=== PATIENT | female | born 1945 | race Caucasian/White ===

== ENCOUNTER → 2020-04-10 | Day surgery (SDC) | payer MEDICARE, OTHER ==
[2020-04-07 12:32] LABS: BASOPHILS # (AUTO) 0.1 (0.0-0.1); BASOPHILS % 0.6 % (0.0-1.0); EOSINOPHILS # (AUTO) 0.3 (0.0-0.4); EOSINOPHILS % 2.6 % (0.0-6.0); HEMATOCRIT 35.9 % (34.2-44.1); HEMOGLOBIN 11.3 g/dL (12.0-16.0); LYMPHOCYTES # (AUTO) 1.6 (1.0-3.2); LYMPHOCYTES % 13.3 % (18.0-39.1); MEAN CORPUSCULAR HEMOGLOBIN 29.7 pg (28-32); MEAN CORPUSCULAR HGB CONC 31.5 g/dL (31-35); MEAN CORPUSCULAR VOLUME 94.2 fL (81-99); MONOCYTES # (AUTO) 1.2 (0.2-0.8); MONOCYTES % 9.8 % (4.4-11.3); NEUTROPHILS # (AUTO) 8.6 (2.1-6.9); NEUTROPHILS % 72.9 % (38.7-80.0); PLATELET COUNT 209 x10e3/uL (140-360); RED BLOOD COUNT 3.81 x10e6/uL (3.6-5.1); RED CELL DISTRIBUTION WIDTH 13.4 % (11.7-14.4)
--- NOTE | 2020-04-07 13:22 | Diagnostic Imaging Report ---
Exam: CHEST 2 VIEWS Date: 04/07/2020 1:18 PM INDICATION: ^[id number] ^[id number] ^PRE OP Comparison: None FINDINGS: Lines/Tubes:None Lungs:The lungs are well inflated. No focal consolidation or pulmonary edema. Pleura:No pleural effusion. No pneumothorax. Heart/Mediastinum:The cardiomediastinal silhouette is normal in size and contour. Bones/Soft Tissues: No acute osseous abnormality. Mild multilevel degenerative changes of the spine are noted. Upper abdomen: Surgical clips in the right upper quadrant are likely related to cholecystectomy change. IMPRESSION: Negative for acute intrathoracic process. Signed by: Ronald Bains MD on 04/07/2020 1:18 PM
[~2020-04-10] MED LIST: BUPIVACAINE HCL 0.5% INJ 30 ML VIAL INJ ONE; BUPROPION XL150 MG PO; CEFAZOLIN SOD 1 GM/NS 50ML 50 ML IV ONE; CITALOPRAM HBR20 MG PO; CRESTOR10 MG PO; DEXAMETHASONE SOD PHOS INJ 4 MG/ML VIAL ONE; GABAPENTIN300 MG PO; KETOROLAC TROMETHAMINE 30 MG/ML VIAL ONE; LIDOCAINE HCL 2% LOCAL INJ 5 ML SDV VIAL INJ ONE; LISINOPRIL-HCT1 EAC2 PO; LOSARTAN POTAS100 MG PO; MELOXICAM7.5 MG PO; MUPIROCIN 2% OINT 22 GM TUBE ONE; ONDANSETRON HCL INJ 2MG/ML 2ML 2 MG/ML VIAL ONE; PROPOFOL IV EMULSION 10 MG/ML 20 ML VIAL ONE; PROTONIX20 MG PO; SEVOFLURANE INHAL SOLN 250 ML PEN BTL ONE
[2020-04-10 09:30] VITALS: BP 138/69
--- NOTE | 2020-04-10 17:52 | Operative Report ---
DATE OF PROCEDURE: 04/10/2020 SURGEON: Wiley Grace MD PREOPERATIVE DIAGNOSIS: Stenosing tenosynovitis of left thumb, left index, and left middle fingers. POSTOPERATIVE DIAGNOSIS: Stenosing tenosynovitis of left thumb, left index, and left middle fingers. OPERATION PERFORMED: Tenovaginotomy of left thumb, left index, and left middle fingers. ANESTHESIA: General. HISTORY: The patient is a 75-year-old left hand-dominant female, who presents with stenosing tenosynovitis of the left thumb, left index, and left middle fingers that is recalcitrant to conservative treatment. The risks, benefits, and alternatives of treatment were discussed with the patient and they are prepared to undergo the procedure as outlined. DESCRIPTION OF PROCEDURE: The patient was brought to the operating theater. After the induction of adequate general/regional anesthesia, the patient was prepped and draped in a supine position. A time out was performed by the entire operating room team. An oblique incision was marked out over the A1 hemanth of the left thumb, left index, and left middle fingers. The upper extremity was exsanguinated, and a tourniquet was inflated to a pressure of 250 mmHg. The incision was made through the skin and subcutaneous tissues. All venous tributaries were controlled with bipolar cautery. The incision was deepened through the palmar tissues. The neurovascular bundles on the radial and ulnar sides of the flexor tendon sheath were identified and retracted away from the flexor tendon sheath and preserved. The A1 hemanth of the affected finger was identified and incised longitudinally, taking care to protect and preserve the flexor tendons within the sheath. After the complete length of the hemanth had been transected, the tendons were placed in a range of motion. There was noted to be good motion without any locking. The wound was then copiously irrigated with bacteriostatic saline and closed with 5-0 nylon in an interrupted horizontal mattress fashion. A Marcaine field block was performed at the operative site. The tourniquet was deflated. All the fingers pinked up nicely. A sterile bulky conforming bandage was applied to the hand, and the patient was returned to the recovery room in satisfactory condition and was discharged with a postoperative instruction sheet as well as a followup appointment. MD VELASQUEZ Pichardo/MODL /[id number]
== END | disposition home or self-care (01) ==
LOC: OR 05:30
PROVIDERS: ATTEND Plastic Surgery
DX: M65.312 Trigger thumb, left thumb (principal); M65.322 Trigger finger, left index finger; M65.332 Trigger finger, left middle finger; I10 Essential (primary) hypertension; Z91.041 Radiographic dye allergy status; Z01.810 Encounter for preprocedural cardiovascular examination; Z01.812 Encounter for preprocedural laboratory examination; Z01.818 Encounter for other preprocedural examination; Z11.59 Encounter for screening for other viral diseases
CPT/HCPCS: 26055 ×3; 36415; 71046; 85025; 93005; J0690; J1100; J1885; J2001; J2405; J2704; U0002

== ENCOUNTER 2024-05-31 05:57 | Observation (INO) | payer MEDICARE ==
[~2024-05-31] VITALS: Ht 165.1 cm; Wt 78.0 kg
[~2024-05-31 05:57] MED LIST changes: +ATENOLOL50 MG PO; -BUPIVACAINE HCL 0.5% INJ 30 ML VIAL INJ ONE; -CEFAZOLIN SOD 1 GM/NS 50ML 50 ML IV ONE; -DEXAMETHASONE SOD PHOS INJ 4 MG/ML VIAL ONE; +HYDROCODON-ACE1 EA11 PO; -KETOROLAC TROMETHAMINE 30 MG/ML VIAL ONE; -LIDOCAINE HCL 2% LOCAL INJ 5 ML SDV VIAL INJ ONE; -MUPIROCIN 2% OINT 22 GM TUBE ONE; -ONDANSETRON HCL INJ 2MG/ML 2ML 2 MG/ML VIAL ONE; +PANTOPRAZOLE SO40 MG PO; -PROPOFOL IV EMULSION 10 MG/ML 20 ML VIAL ONE; -SEVOFLURANE INHAL SOLN 250 ML PEN BTL ONE; +TIZANIDINE HCL4 M1 PO
[2024-05-31] MEDS ORDERED: Vancomycin IV 1 GM VIAL ONE (06:48)
[2024-05-31] MEDS ORDERED: THROMBIN FOR SOLN 5,000 UNIT VIAL ONE (06:48)
[2024-05-31] MEDS: LACTATED RINGER'S 1,000 ML ONE (08:21)
[2024-05-31 08:22] LABS: BASOPHILS # (AUTO) 0.1 (0.0-0.1); BASOPHILS % 0.6 % (0.0-1.0); EOSINOPHILS # (AUTO) 0.3 (0.0-0.4); EOSINOPHILS % 2.6 % (0.0-6.0); HEMATOCRIT 41.9 % (34.2-44.1); HEMOGLOBIN 12.6 g/dL (12.0-16.0); LYMPHOCYTES # (AUTO) 2.8 (1.0-3.2); LYMPHOCYTES % 21.7 % (18.0-39.1); MEAN CORPUSCULAR HEMOGLOBIN 29.9 pg (28-32); MEAN CORPUSCULAR HGB CONC 30.1 g/dL (31-35); MEAN CORPUSCULAR VOLUME 99.5 fL (81-99); MONOCYTES # (AUTO) 1.2 (0.2-0.8); MONOCYTES % 9.4 % (4.4-11.3); NEUTROPHILS # (AUTO) 8.4 (2.1-6.9); NEUTROPHILS % 64.5 % (38.7-80.0); PLATELET COUNT 223 x10e3/uL (140-360); RED BLOOD COUNT 4.21 x10e6/uL (3.6-5.1); RED CELL DISTRIBUTION WIDTH 14.2 % (11.7-14.4); WHITE BLOOD COUNT 13.02 x10e3/uL (4.8-10.8)
[2024-05-31] MEDS ORDERED: LIDOCAINE HCL 2% LOCAL INJ 5 ML SDV VIAL INJ ONE (08:27)
[2024-05-31] MEDS ORDERED: ROCURONIUM BROMIDE 1 ML IV ONE (08:27)
[2024-05-31] MEDS ORDERED: FENTANYL CITRATE/PF 100MCG/2 ML INJ ONE (08:27)
[2024-05-31] MEDS ORDERED: PROPOFOL IV EMULSION 10 MG/ML 20 ML VIAL ONE (08:27)
[2024-05-31] MEDS ORDERED: ACETAMINOPHEN 1000 MG/100 ML 100 ML IV ONE (08:27)
[2024-05-31 08:35] LABS: INR 0.92; PROTHROMBIN TIME 12.9 seconds (11.9-14.5)
[2024-05-31 08:36] LABS: PARTIAL THROMBOPLASTIN TIME 25.5 seconds (23.8-35.5)
[2024-05-31 08:40] LABS: ANION GAP 13.6 mmol/L (8-16); CALCIUM 9.5 mg/dL (8.4-10.2); CREATININE, SERUM 1.06 mg/dL (0.57-1.11); POTASSIUM 4.6 mmol/L (3.5-5.1)
[2024-05-31] MEDS ORDERED: FAMOTIDINE 20 MG/2 ML VIAL IV ONE (09:36)
[2024-05-31] MEDS ORDERED: DEXAMETHASONE SOD PHOS INJ 4 MG/ML SDV ONE (09:36)
[2024-05-31] MEDS ORDERED: ONDANSETRON HCL INJ 2MG/ML 2ML 2 MG/ML VIAL ONE (09:36)
[2024-05-31] MEDS ORDERED: HYDROCODON-ACE1 EA12 PO (10:24)
[2024-05-31] MEDS ORDERED: ZOLPIDEM TARTRATE 5 MG TAB PO PRN (10:30)
[2024-05-31] MEDS ORDERED: Morphine 10mg syringe 10 MG/ML INJ IM PRN (10:30)
[2024-05-31] MEDS ORDERED: CARISOPRODOL 350 MG TAB PO PRN (10:30)
[2024-05-31] MEDS ORDERED: HYDROMORPHONE 2MG/ML IV PRN (10:30)
[2024-05-31] MEDS ORDERED: ACETAMINOPHEN 325 MG TAB PO PRN (10:30)
[2024-05-31] MEDS ORDERED: OXYCODONE/ACETAMINOPHEN 5-325 1 EACH TABLET PO PRN (10:30)
[2024-05-31] MEDS ORDERED: ONDANSETRON HCL INJ 2MG/ML 2ML 2 MG/ML VIAL IV PRN (10:30)
[2024-05-31] MEDS ORDERED: PROMETHAZINE HCL (IM) 25 MG/ML VIAL IM PRN (10:30)
[2024-05-31] MEDS ORDERED: MAGNESIUM/ALUMINUM/SIMETHICONE 30 ML UDC PO PRN (10:30)
[2024-05-31] MEDS: FENTANYL CITRATE/PF 100MCG/2 ML INJ ONE (10:49)
[2024-05-31] MEDS: HYDROCODONE/APAP 5MG-325MG TAB PO SCH (12:00)
[2024-05-31 12:37] VITALS: BP 103/86; PULSE 58; RESP 17; TEMP 97.7; O2SAT 99
[2024-05-31 12:55] VITALS: BP 103/86; PULSE 58; RESP 17; TEMP 97.7; O2SAT 99
[2024-05-31] MEDS: CEFAZOLIN SODIUM 2 GM ONE (13:16)
[2024-05-31] MEDS: LACTATED RINGER'S 1,000 ML IV SCH (13:41)
[2024-05-31 13:53] VITALS: BP 103/86; PULSE 58; RESP 17; TEMP 97.7; O2SAT 99
[2024-05-31] MEDS: GABAPENTIN 300 MG CAP PO SCH (15:14)
[2024-05-31 16:00] VITALS: BP 146/56; PULSE 79; RESP 18; TEMP 97.9; O2SAT 98
[2024-05-31 20:00] VITALS: BP 139/64; PULSE 70; RESP 22; TEMP 97.9; O2SAT 98
[2024-05-31] MEDS: TIZANIDINE HCL 4 MG TAB PO PRN (20:36)
[2024-05-31 21:00] VITALS: BP 139/64; PULSE 70; RESP 22; TEMP 97.9; O2SAT 98
[2024-06-01 00:35] VITALS: BP 113/58; PULSE 66; RESP 20; TEMP 97.5; O2SAT 96
[2024-06-01 05:27] VITALS: BP 113/53; PULSE 63; RESP 20; TEMP 97.6; O2SAT 98
[2024-06-01 07:37] VITALS: BP 113/53; PULSE 63; RESP 20; TEMP 97.6; O2SAT 98
[2024-06-01 08:00] VITALS: BP 109/57; PULSE 57; RESP 19; TEMP 97.6; O2SAT 100
[2024-06-01] MEDS: PANTOPRAZOLE SOD 40 MG TABEC PO SCH (09:05)
[2024-06-01 09:07] VITALS: BP 109/57; PULSE 57
[2024-06-01] MEDS: ATENOLOL 50 MG TAB PO SCH (09:07)
== END 2024-06-01 11:10 | disposition home or self-care (01) ==
LOC: OR 05:57 → PACU V 10:22 → MED/SURG 12:31
PROVIDERS: ADMIT Neurological Surgery; ATTEND Neurological Surgery
DX: M48.062 Spinal stenosis, lumbar region with neurogenic claudication (principal); M51.16 Intervertebral disc disorders with radiculopathy, lumbar region; I10 Essential (primary) hypertension; K21.9 Gastro-esophageal reflux disease without esophagitis; E66.01 Morbid (severe) obesity due to excess calories; Z68.28 Body mass index [BMI] 28.0-28.9, adult; R00.1 Bradycardia, unspecified; G89.29 Other chronic pain; Z98.1 Arthrodesis status; Z96.653 Presence of artificial knee joint, bilateral; Z79.899 Other long term (current) drug therapy
CPT/HCPCS: 36415; 63047; 63048; 72020; 80048; 85025; 85610; 85730; 86850; 86900; 88304; 88311; 93005; G0378 ×2; J0131; J0690 ×3; J1100; J2003; J2405; J2704; J3010; J3370; J7121; S0164